=== PATIENT | male | born 1955 | race Caucasian/White ===

== ENCOUNTER 2021-01-26 08:49 | Emergency (ER) | payer OTHER ==
[~2021-01-26] VITALS: Ht 180.3 cm; Wt 81.7 kg
[2021-01-26] MEDS ORDERED: ATOR80 PO (08:57)
[2021-01-26] MEDS ORDERED: ATEN25 PO (08:57)
[2021-01-26] MEDS ORDERED: Aspir 8181 MG PO (08:57)
[2021-01-26] MEDS ORDERED: Vitamin D2000 UNIT PO (08:58)
[2021-01-26] MEDS ORDERED: FISH OIL (08:59)
[2021-01-26] MEDS ORDERED: CYCL10 PO (08:59)
[2021-01-26] MEDS ORDERED: B-121000 MC4 PO (08:59)
[2021-01-26] MEDS ORDERED: Prinivil10 MG PO (09:00)
[2021-01-26] MEDS ORDERED: IBUP600 PO (09:00)
[2021-01-26] MEDS ORDERED: GABA300 PO (09:00)
== END 2021-01-26 11:13 | disposition home or self-care (01) ==
LOC: ER 08:49
DX: S06.9X9A Unspecified intracranial injury with loss of consciousness of unspecified duration, initial encounter (principal); G43.909 Migraine, unspecified, not intractable, without status migrainosus; Z79.899 Other long term (current) drug therapy; Z79.82 Long term (current) use of aspirin; W22.8XXA Striking against or struck by other objects, initial encounter
CPT/HCPCS: 70450; 96361; 96374; 96375; 99284-25; J0780; J1200; J1885; J7030